=== PATIENT | female | born 1970 | race Caucasian/White ===

== ENCOUNTER 2023-07-11 14:46 | Observation (INO) | payer BC ==
--- NOTE | 2023-07-11 15:52 | PCM.HP ---
History of Present Illness - Chief Complaint Chief Complaint: Cough, shortness of breath Date: 07/11/23 History of Present Illness: is a 53 year old female with a pmhx of MVP, HTN, and diverticulitis, a direct admission from the office of Terri Mcmahon NP, who presents with complaints of mild shortness of breath, productive cough with yellow/green sputum, and chills following a colonoscopy she had yesterday. She reports that during her colonoscopy she was told she had moderate amounts of mucus that had to be cleared while she was under anesthesia and has not felt well since. CT imaging of the C/A/P performed without contrast showing Diffuse patchy left lung consolidating/nonconsolidating airspace disease. Incidental small hiatal hernia as well as diffuse diverticulosis, fatty liver, minimal arteriosclerotic disease, and chronic bony findings. Lab findings are remarkable for leukocytosis with wbc at 11.3 and elevated D-Dimer at 0.86. CTA has been ordered and pending. Denies fever, cp, abdominal pain, WING, dizziness, N/V/D. No recent sick contacts. - Review of Systems Constitutional: Chills, Fatigue Eyes: No Symptoms Ears, Nose, & Throat: No Symptoms Respiratory: Cough, Short Of Breath, Wheezing Cardiac: No Symptoms Abdominal/Gastrointestinal: Abdominal Pain Genitourinary Symptoms: No Symptoms Musculoskeletal: No Symptoms Skin: No Symptoms Neurological: No Symptoms Psychological: No Symptoms Endocrine: No Symptoms Hematologic/Lymphatic: No Symptoms Immunological/Allergic: No Symptoms - Past Medical History Neurological History: No Pertinent History Cardiac History: Hypertension Respiratory History: No Pertinent History Endocrine Medical History: No Pertinent History Musculoskelatal History: Arthritis Comment: MITRAL VALVE PROLAPSE. CHRONIC BACK PAIN. - Physical Exam General Appearance: no apparent distress Neurologic Exam: alert, oriented x 3, cooperative Eye Exam: PERRL/EOMI Neck Exam: normal inspection Respiratory Exam: crackles/rales, wheezing Cardiovascular Exam: regular rate/rhythm, normal heart sounds Extremity Exam: normal inspection Skin Exam: normal color Assessment/Plan (1) Pneumonia Current Visit: Yes Status: Acute Assessment & Plan: CT of chest w/o contrast demonstrates: Diffuse patchy left lung consolidating/nonconsolidating airspace disease, will order CTA -Sputum and Blood cxs obtained -Supplemental oxygen to maintain >92% spo2 -start duonebs, methylprednisone, LR @ 75 ml/hr -RT evaluation -Will Start Ceftriaxone plus azithromycin Continue appropriate baseline home medications CBC, CMP, Mg in am, procal, lactic, respiratory viral panel DVT prophylaxis-lovenox 40 mg SQ daily Code(s): J18.9 - PNEUMONIA, UNSPECIFIED ORGANISM (2) Shortness of breath Current Visit: Yes Status: Acute Assessment & Plan: -see pneumonia, will order CTA to r/o PE Code(s): R06.02 - SHORTNESS OF BREATH (3) Cough productive of purulent sputum Current Visit: Yes Status: Acute Assessment & Plan: -see pneumonia Code(s): R05.8 - OTHER SPECIFIED COUGH (4) Hypertension Current Visit: Yes Status: Acute Assessment & Plan: -Continue home meds Code(s): I10 - ESSENTIAL (PRIMARY) HYPERTENSION (5) Diverticulosis Current Visit: Yes Status: Acute Assessment & Plan: -noted on ct VTE: lovenox PPI: Protonix Next of Kin: Caio Fair spouse [phone] Code(s): K57.90 - DVRTCLOS OF INTEST, PART UNSP, W/O PERF OR ABSCESS W/O BLEED
[2023-07-11] MEDS ORDERED: TYLENOL 325 MG PO PRN (16:21)
[2023-07-11] MEDS ORDERED: DUONEB 0.5-3 MG/3 ml Neb IH PRN ×2 (16:21→17:03)
[2023-07-11] MEDS ORDERED: ROCEPHIN 1 Gm-D5w 50 ml Bag** 1 G/50 ML IVPB IV SCH (16:30)
[2023-07-11] MEDS ORDERED: ZITHROMAX IV*** 0 MG in Sodium Chloride 0.9% 250 ML 250 ML IV SCH (16:30)
[2023-07-11 17:18] LABS: ALBUMIN 4.6 g/dL (3.5-5.0); ALKALINE PHOSPHATASE 82 U/L (38-126); ANION GAP 15.7 MEQ/L (5-15); BLOOD UREA NITROGEN 11 mg/dL (7-17); CHLORIDE 102 mmol/L (98-107); Calcium 9.5 mg/dL (8.4-10.2); Carbon Dioxide 27 mmol/L (22-30); Creatinine 1 0.58 mg/dL (0.52-1.04); EST GLOMERULAR FILTRATION RATE > 60.0 ML/MIN; Glucose 104 mg/dL (74-106); SGOT/AST 36 U/L (14-36); SGPT/ALT 45 U/L (0-35); SODIUM 142 mmol/L (137-145); Total Protein 7.8 g/dL (6.3-8.2)
[2023-07-11 17:23] LABS: Potassium 2.9 mmol/L (3.5-5.1)
[2023-07-11 17:24] LABS: INFLUENZA A NEGATIVE (NEGATIVE); INFLUENZA B NEGATIVE (NEGATIVE); RESPIRATORY SYNCTIAL VIRUS NEGATIVE (NEGATIVE); SARS-CoV-2 Xpert Express NEGATIVE (NEGATIVE)
[2023-07-11] MEDS: Lactated Ringers 1,000 ML IV SCH (17:28)
[2023-07-11] MEDS: ENOXAPARIN SODIUM SQ SCH (17:29)
[2023-07-11] MEDS: PROTONIX 40 MG IV IV SCH (17:30)
[2023-07-11] MEDS: DUONEB 0.5-3 MG/3 ml Neb IH SCH ×2 (17:30→20:58)
[2023-07-11] MEDS ORDERED: Sterile H2O 10 ml IJ ONE (17:30)
[2023-07-11] MEDS: solu-MEDROL IV SCH (17:30)
[2023-07-11] MEDS: PIPERACILLIN/TAZOBACTAM 3.375 GM in Sodium Chloride 100ML MINI-BAG PLUS 100 ML IV SCH (17:33)
[2023-07-11] MEDS ORDERED: Zithromax 500 MG/ 250 ML NaCl Premix 500 MG/250 ML IVPB IV SCH (17:55)
[2023-07-11 18:09] LABS: Appearance Clear (Clear); Bacteria None Seen /HPF (None Seen); Bilirubin Negative (Negative); Blood Trace (Negative); Epithelial Cells None Seen /HPF (None Seen); Glucose, Urine Negative (Negative); Hyaline Casts NONE SEEN /LPF (0-2); Ketones 15 (Negative); Leukocyte Esterase Small (Negative); Nitrite Negative (Negative); Ph 6.5 (4.6-8.0); Protein,Urine Dip Negative (Negative)
[2023-07-11 18:10] LABS: ADD URINE CULTURE? YES (NO)
[2023-07-11] MEDS: Zithromax 500 MG/ 250 ML NaCl Premix 500 MG/250 ML IVPB IV SCH ×2 (18:19→19:32)
[2023-07-11] MEDS: POTASSIUM CHLORIDE 20 mEq IN WATER 100ML 100 ML IV SCH ×2 (18:22→22:18)
[2023-07-12] MEDS: PIPERACILLIN/TAZOBACTAM 3.375 GM in Sodium Chloride 100ML MINI-BAG PLUS 100 ML IV SCH ×3 (00:37→11:25)
[2023-07-12] MEDS: Lactated Ringers 1,000 ML IV SCH (00:40)
--- NOTE | 2023-07-12 05:34 | PCM.NOTE ---
Date and Time: 07/12/23529 Subjective Assessment: is a 53 year old female with a pmhx of MVP, HTN, and diverticulitis, a direct admission from the office of Terri Mcmahon NP, who presents with complaints of mild shortness of breath, productive cough with yellow/green sputum, and chills following a colonoscopy she had 07/10/23. She reports that during her colonoscopy she was told she had moderate amounts of mucus that had to be cleared while she was under anesthesia and has not felt well since. CT imaging of the C/A/P performed without contrast showing Diffuse patchy left lung consolidating/nonconsolidating airspace disease. Incidental small hiatal hernia as well as diffuse diverticulosis, fatty liver, minimal arteriosclerotic disea se, and chronic bony findings. She is currently being treated with zosyn/azithromycin. OBJECTIVE DATA Vital Signs: Vital Signs - 24 hr Temp Pulse Resp BP Pulse Ox 07/12/23 03:40 97.9 F 83 18 115/71 95 07/11/23 23:49 97.5 F 88 18 126/65 97 07/11/23 20:58 85 20 96 07/11/23 20:00 97.8 F 88 20 108/67 96 07/11/23 17:27 82 18 97 07/11/23 15:02 97.7 F 86 20 120/80 97 Pain Assessment - Last Documented Pain Intensity 0 Intake and Output: Intake & Output 07/09/23 07/10/23 07/11/23 07/12/23 11:59 11:59 11:59 11:59 Intake Total 700 Output Total 1000 Balance -300 Weight 92 kg Lab Results: Lab Results-Last 24 Hours 07/11/23 07/11/23 07/11/23 Range/Units 16:40 16:48 16:48 Sodium 142 (137-145) mmol/L Potassium 2.9 L* (3.5-5.1) mmol/L Chloride 102 (98-107) mmol/L Carbon Dioxide 27 (22-30) mmol/L Anion Gap 15.7 H (5-15) MEQ/L BUN 11 (7-17) mg/dL Creatinine 0.58 (0.52-1.04) mg/dL Estimated GFR > 60.0 ML/MIN Glucose 104 (74-106) mg/dL Lactic Acid (0.4-2.0) Calcium 9.5 (8.4-10.2) mg/dL Magnesium 2.0 (1.6-2.3) mg/dL Total Bilirubin 1.60 H (0.2-1.3) mg/dL AST 36 (14-36) U/L ALT 45 H (0-35) U/L Alkaline Phosphatase 82 (38-126) U/L Serum Total Protein 7.8 (6.3-8.2) g/dL Albumin 4.6 (3.5-5.0) g/dL Procalcitonin 2.650 H* (0.030-0.080) ng/mL Urine Color (Yellow) Urine Appearance (Clear) Urine pH (4.6-8.0) Ur Specific [place] (1.005-1.030) Urine Protein (Negative) Urine Glucose (UA) (Negative) mg/dL Urine Ketones (Negative) Urine Blood (Negative) Urine Nitrite (Negative) Urine Bilirubin (Negative) Urine Urobilinogen (0.2) mg/dL Ur Leukocyte Esterase (Negative) U Hyaline Cast (Auto) (0-2) /LPF Urine Microscopic RBC (0-5) /HPF Urine Microscopic WBC (0-5) /HPF Ur Epithelial Cells (None Seen) /HPF Urine Bacteria (None Seen) /HPF Urine Culture Reflexed (NO) Influenza Type A Ag NEGATIVE (NEGATIVE) Influenza Type B Ag NEGATIVE (NEGATIVE) RSV (PCR) NEGATIVE (NEGATIVE) SARS-CoV-2 (PCR) NEGATIVE (NEGATIVE) 07/11/23 07/11/23 07/11/23 Range/Units 16:50 17:57 21:45 Sodium (137-145) mmol/L Potassium 3.3 L (3.5-5.1) mmol/L Chloride (98-107) mmol/L Carbon Dioxide (22-30) mmol/L Anion Gap (5-15) MEQ/L BUN (7-17) mg/dL Creatinine (0.52-1.04) mg/dL Estimated GFR ML/MIN Glucose (74-106) mg/dL Lactic Acid 1.2 (0.4-2.0) Calcium (8.4-10.2) mg/dL Magnesium (1.6-2.3) mg/dL Total Bilirubin (0.2-1.3) mg/dL AST (14-36) U/L ALT (0-35) U/L Alkaline Phosphatase (38-126) U/L Serum Total Protein (6.3-8.2) g/dL Albumin (3.5-5.0) g/dL Procalcitonin (0.030-0.080) ng/mL Urine Color Yellow (Yellow) Urine Appearance Clear (Clear) Urine pH 6.5 (4.6-8.0) Ur Specific [place] 1.010 (1.005-1.030) Urine Protein Negative (Negative) Urine Glucose (UA) Negative (Negative) mg/dL Urine Ketones 15 A (Negative) Urine Blood Trace (Negative) Urine Nitrite Negative (Negative) Urine Bilirubin Negative (Negative) Urine Urobilinogen 2.0 A (0.2) mg/dL Ur Leukocyte Esterase Small A (Negative) U Hyaline Cast (Auto) NONE SEEN (0-2) /LPF Urine Microscopic RBC 3-5 (0-5) /HPF Urine Microscopic WBC 3-5 (0-5) /HPF Ur Epithelial Cells None Seen (None Seen) /HPF Urine Bacteria None Seen (None Seen) /HPF Urine Culture Reflexed YES (NO) Influenza Type A Ag (NEGATIVE) Influenza Type B Ag (NEGATIVE) RSV (PCR) (NEGATIVE) SARS-CoV-2 (PCR) (NEGATIVE) 07/12/23 Range/Units 02:24 Sodium (137-145) mmol/L Potassium 3.3 L (3.5-5.1) mmol/L Chloride (98-107) mmol/L Carbon Dioxide (22-30) mmol/L Anion Gap (5-15) MEQ/L BUN (7-17) mg/dL Creatinine (0.52-1.04) mg/dL Estimated GFR ML/MIN Glucose (74-106) mg/dL Lactic Acid (0.4-2.0) Calcium (8.4-10.2) mg/dL Magnesium (1.6-2.3) mg/dL Total Bilirubin (0.2-1.3) mg/dL AST (14-36) U/L ALT (0-35) U/L Alkaline Phosphatase (38-126) U/L Serum Total Protein (6.3-8.2) g/dL Albumin (3.5-5.0) g/dL Procalcitonin (0.030-0.080) ng/mL Urine Color (Yellow) Urine Appearance (Clear) Urine pH (4.6-8.0) Ur Specific [place] (1.005-1.030) Urine Protein (Negative) Urine Glucose (UA) (Negative) mg/dL Urine Ketones (Negative) Urine Blood (Negative) Urine Nitrite (Negative) Urine Bilirubin (Negative) Urine Urobilinogen (0.2) mg/dL Ur Leukocyte Esterase (Negative) U Hyaline Cast (Auto) (0-2) /LPF Urine Microscopic RBC (0-5) /HPF Urine Microscopic WBC (0-5) /HPF Ur Epithelial Cells (None Seen) /HPF Urine Bacteria (None Seen) /HPF Urine Culture Reflexed (NO) Influenza Type A Ag (NEGATIVE) Influenza Type B Ag (NEGATIVE) RSV (PCR) (NEGATIVE) SARS-CoV-2 (PCR) (NEGATIVE) Radiology Exams: Radiology Procedures Category Date Time Status CHEST WITH CONTRAST [CT] Stat Exams 07/11/23 16:08 Taken Assessment/Plan (1) Pneumonia Current Visit: Yes Status: Acute Assessment & Plan: CT of chest w/o contrast demonstrates: Diffuse patchy left lung consolidating/nonconsolidating airspace disease, will order CTA -Sputum and Blood cxs obtained -Supplemental oxygen to maintain >92% spo2 -start duonebs, methylprednisone, LR @ 75 ml/hr -RT evaluation -Will Start Ceftriaxone plus azithromycin Continue appropriate baseline home medications CBC, CMP, Mg in am, procal, lactic, respiratory viral panel DVT prophylaxis-lovenox 40 mg SQ daily 07/12: -Continue zosyn/azith -CT chest w/ contrast demonstrates Code(s): J18.9 - PNEUMONIA, UNSPECIFIED ORGANISM (2) Shortness of breath Current Visit: Yes Status: Acute Assessment & Plan: -see pneumonia, will order CTA to r/o PE Code(s): R06.02 - SHORTNESS OF BREATH (3) Cough productive of purulent sputum Current Visit: Yes Status: Acute Assessment & Plan: -see pneumonia, will order CTA to r/o PE Code(s): R05.8 - OTHER SPECIFIED COUGH (4) Hypokalemia Current Visit: Yes Status: Acute Assessment & Plan: -labs reviewed, potassium low on admission at 2.9, will hold HCTZ for now, improving since admission, will continue to monitor and replace as appropriate Code(s): E87.6 - HYPOKALEMIA (5) Hypertension Current Visit: Yes Status: Acute Assessment & Plan: -Continue home meds Code(s): I10 - ESSENTIAL (PRIMARY) HYPERTENSION (6) Diverticulosis Current Visit: Yes Status: Acute Assessment & Plan: -noted on ct/recent colonoscopy VTE: lovenox PPI: Protonix Next of Kin: Caio Fair spouse [phone] Code(s): K57.90 - DVRTCLOS OF INTEST, PART UNSP, W/O PERF OR ABSCESS W/O BLEED
[2023-07-12] MEDS: DUONEB 0.5-3 MG/3 ml Neb IH SCH ×2 (06:57→10:35)
[2023-07-12 07:11] LABS: ALBUMIN 3.6 g/dL (3.5-5.0); ALKALINE PHOSPHATASE 69 U/L (38-126); ANION GAP 14.1 MEQ/L (5-15); BLOOD UREA NITROGEN 8 mg/dL (7-17); CHLORIDE 107 mmol/L (98-107); Calcium 8.8 mg/dL (8.4-10.2); Carbon Dioxide 26 mmol/L (22-30); Creatinine 1 0.53 mg/dL (0.52-1.04); EST GLOMERULAR FILTRATION RATE > 60.0 ML/MIN; Glucose 130 mg/dL (74-106); Potassium 3.6 mmol/L (3.5-5.1); SGOT/AST 26 U/L (14-36); SGPT/ALT 34 U/L (0-35); SODIUM 144 mmol/L (137-145); Total Protein 6.5 g/dL (6.3-8.2)
[2023-07-12 07:18] LABS: Hematocrit 37.2 % (35-47); Hemoglobin 12.1 g/dL (12.0-16.0); Mean Cell Volume 87.3 fL (78-100); Mean Corpuscular Hemoglobin 28.4 pg (26-32); Mean Corpuscular Hgb Concent. 32.5 g/dL (32-36); Mean Platelet Volume 10.4 fL (7.5-11.0); Platelet Count 183 x10^3/uL (150-450); Red Blood Count 4.26 x10^6/uL (4.1-5.4); Red Cell Distribution Width 12.7 % (11.5-14.0); White Blood Count 7.8 x10^3/uL (4.0-10.5)
[2023-07-12] MEDS ORDERED: Sterile H2O 10 ml IJ SCH (08:30)
--- NOTE | 2023-07-12 08:43 | XRAY ---
Indication: Elevated d-dimer. Multiple contiguous axial images obtained through the chest using 80 cc Isovue 370 contrast and PE protocol. Comparison: Same day CT chest without contrast exam. Adequate opacification of the pulmonary arteries. However mild respiration artifact limits evaluation for pulmonary embolus. No obvious pulmonary embolus. Heart not enlarged. Aorta is normal in course and caliber. No pathologic mediastinal/hilar lymphadenopathy. Stable small hiatal hernia. Lungs again demonstrates diffuse left lung consolidating/nonconsolidating airspace disease without effusion. Right lung remains clear. Impression: 1. Pulmonary embolus evaluation limited by respiration artifact. No obvious pulmonary embolus. 2. Grossly stable diffuse left lung consolidating/nonconsolidating airspace disease and small hiatal hernia.
[2023-07-12] MEDS: solu-MEDROL IV SCH (08:47)
[2023-07-12] MEDS: PROTONIX 40 MG IV IV SCH (08:47)
[2023-07-12] MEDS: ENOXAPARIN SODIUM SQ SCH (08:47)
--- NOTE | 2023-07-12 09:41 | PCM.DS ---
Discharge Summary Date of Admission: 07/11/23 14:46 Date of Discharge: 07/12/23 Admitting Physician: ROHITH ALMONTE MD Primary Care Provider: ROCK MCMAHON Allergies Allergies No Known Drug Allergies Allergy (Unverified 07/11/23 17:00) Hospital Summary - Hospital Course Hospital Course: is a 53 year old female with a pmhx of MVP, HTN, and diverticulitis, a direct admission from the office of Rock Mcmahon NP, who presents with complaints of mild shortness of breath, productive cough with yellow/green sputum, and chills following a colonoscopy she had 07/10/23. She reports that during her colonoscopy she was told she had moderate amounts of mucus that had to be cleared while she was under anesthesia and has not felt well since. CT imaging of the C/A/P performed without contrast showing Diffuse patchy left lung consolidating/nonconsolidating airspace disease. Incidental small hiatal hernia as well as diffuse diverticulosis, fatty liver, minimal arteriosclerotic disease, and chronic bony findings. Treated with zosyn/ azithromycin as IP. On RA, no hypoxia, will discharge on Doxycycline/azithromycin/ prednisone. Advised close follow up with PCP in 3-5 days. New Diagnosis: Pneumonia New Medications: Doxycycline/azith/prednisone Follow Up: PCP Results pending: bcult Latest Assessment & Plan (1) Pneumonia Current Visit: Yes Status: Acute Assessment & Plan: CT of chest w/o contrast demonstrates: Diffuse patchy left lung consolidating/nonconsolidating airspace disease, will order CTA -Sputum and Blood cxs obtained -Supplemental oxygen to maintain >92% spo2 -start duonebs, methylprednisone, LR @ 75 ml/hr -RT evaluation -Will Start Ceftriaxone plus azithromycin Continue appropriate baseline home medications CBC, CMP, Mg in am, procal, lactic, respiratory viral panel DVT prophylaxis-lovenox 40 mg SQ daily 07/12: -Continue zosyn/azith -CT chest w/ contrast demonstrates Code(s): J18.9 - PNEUMONIA, UNSPECIFIED ORGANISM (2) Shortness of breath Current Visit: Yes Status: Acute Assessment & Plan: -see pneumonia, will order CTA to r/o PE Code(s): R06.02 - SHORTNESS OF BREATH (3) Cough productive of purulent sputum Current Visit: Yes Status: Acute Assessment & Plan: -see pneumonia, will order CTA to r/o PE Code(s): R05.8 - OTHER SPECIFIED COUGH (4) Hypokalemia Current Visit: Yes Status: Acute Assessment & Plan: -labs reviewed, potassium low on admission at 2.9, will hold HCTZ for now, improving since admission, will continue to monitor and replace as appropriate Code(s): E87.6 - HYPOKALEMIA (5) Hypertension Current Visit: Yes Status: Acute Assessment & Plan: -Continue home meds Code(s): I10 - ESSENTIAL (PRIMARY) HYPERTENSION (6) Diverticulosis Current Visit: Yes Status: Acute Assessment & Plan: -noted on ct/recent colonoscopy I spent 45 minutes [id number] with the patient on the day of discharge performing discharge exam, discussing hospital stay and discharge instructions with patient and caregivers, preparation of discharge records, prescriptions & referral forms and addressing any questions/concerns the patient had as documented above. - Vitals & Intake/Output Vital Signs: Vital Signs Temperature 97.7 F 07/12/23 06:50 Pulse Rate 74 07/12/23 06:59 Respiratory Rate 16 07/12/23 06:59 Blood Pressure 125/65 07/12/23 06:50 O2 Sat by Pulse Oximetry 97 07/12/23 06:59 Intake & Output: Intake & Output 07/09/23 07/10/23 07/11/23 07/12/23 11:59 11:59 11:59 11:59 Intake Total 1180 Output Total 1000 Balance 180 Weight 92 kg - Lab Result Diagrams: 07/12/23 06:40 07/12/23 06:40 Lab Results-Last 24 Hrs: Lab Results-Last 24 Hours 07/11/23 07/11/23 07/11/23 Range/Units 16:40 16:48 16:48 WBC (4.0-10.5) x10^3/uL RBC (4.1-5.4) x10^6/uL Hgb (12.0-16.0) g/dL Hct (35-47) % MCV (78-100) fL MCH (26-32) pg MCHC (32-36) g/dL RDW (11.5-14.0) % Plt Count (150-450) x10^3/uL MPV (7.5-11.0) fL Sodium 142 (137-145) mmol/L Potassium 2.9 L* (3.5-5.1) mmol/L Chloride 102 (98-107) mmol/L Carbon Dioxide 27 (22-30) mmol/L Anion Gap 15.7 H (5-15) MEQ/L BUN 11 (7-17) mg/dL Creatinine 0.58 (0.52-1.04) mg/dL Estimated GFR > 60.0 ML/MIN Glucose 104 (74-106) mg/dL Lactic Acid (0.4-2.0) Calcium 9.5 (8.4-10.2) mg/dL Magnesium 2.0 (1.6-2.3) mg/dL Total Bilirubin 1.60 H (0.2-1.3) mg/dL AST 36 (14-36) U/L ALT 45 H (0-35) U/L Alkaline Phosphatase 82 (38-126) U/L Serum Total Protein 7.8 (6.3-8.2) g/dL Albumin 4.6 (3.5-5.0) g/dL Procalcitonin 2.650 H* (0.030-0.080) ng/mL Urine Color (Yellow) Urine Appearance (Clear) Urine pH (4.6-8.0) Ur Specific [place] (1.005-1.030) Urine Protein (Negative) Urine Glucose (UA) (Negative) mg/dL Urine Ketones (Negative) Urine Blood (Negative) Urine Nitrite (Negative) Urine Bilirubin (Negative) Urine Urobilinogen (0.2) mg/dL Ur Leukocyte Esterase (Negative) U Hyaline Cast (Auto) (0-2) /LPF Urine Microscopic RBC (0-5) /HPF Urine Microscopic WBC (0-5) /HPF Ur Epithelial Cells (None Seen) /HPF Urine Bacteria (None Seen) /HPF Urine Culture Reflexed (NO) Influenza Type A Ag NEGATIVE (NEGATIVE) Influenza Type B Ag NEGATIVE (NEGATIVE) RSV (PCR) NEGATIVE (NEGATIVE) SARS-CoV-2 (PCR) NEGATIVE (NEGATIVE) 07/11/23 07/11/23 07/11/23 Range/Units 16:50 17:57 21:45 WBC (4.0-10.5) x10^3/uL RBC (4.1-5.4) x10^6/uL Hgb (12.0-16.0) g/dL Hct (35-47) % MCV (78-100) fL MCH (26-32) pg MCHC (32-36) g/dL RDW (11.5-14.0) % Plt Count (150-450) x10^3/uL MPV (7.5-11.0) fL Sodium (137-145) mmol/L Potassium 3.3 L (3.5-5.1) mmol/L Chloride (98-107) mmol/L Carbon Dioxide (22-30) mmol/L Anion Gap (5-15) MEQ/L BUN (7-17) mg/dL Creatinine (0.52-1.04) mg/dL Estimated GFR ML/MIN Glucose (74-106) mg/dL Lactic Acid 1.2 (0.4-2.0) Calcium (8.4-10.2) mg/dL Magnesium (1.6-2.3) mg/dL Total Bilirubin (0.2-1.3) mg/dL AST (14-36) U/L ALT (0-35) U/L Alkaline Phosphatase (38-126) U/L Serum Total Protein (6.3-8.2) g/dL Albumin (3.5-5.0) g/dL Procalcitonin (0.030-0.080) ng/mL Urine Color Yellow (Yellow) Urine Appearance Clear (Clear) Urine pH 6.5 (4.6-8.0) Ur Specific [place] 1.010 (1.005-1.030) Urine Protein Negative (Negative) Urine Glucose (UA) Negative (Negative) mg/dL Urine Ketones 15 A (Negative) Urine Blood Trace (Negative) Urine Nitrite Negative (Negative) Urine Bilirubin Negative (Negative) Urine Urobilinogen 2.0 A (0.2) mg/dL Ur Leukocyte Esterase Small A (Negative) U Hyaline Cast (Auto) NONE SEEN (0-2) /LPF Urine Microscopic RBC 3-5 (0-5) /HPF Urine Microscopic WBC 3-5 (0-5) /HPF Ur Epithelial Cells None Seen (None Seen) /HPF Urine Bacteria None Seen (None Seen) /HPF Urine Culture Reflexed YES (NO) Influenza Type A Ag (NEGATIVE) Influenza Type B Ag (NEGATIVE) RSV (PCR) (NEGATIVE) SARS-CoV-2 (PCR) (NEGATIVE) 07/12/23 07/12/23 07/12/23 Range/Units 02:24 06:40 06:40 WBC 7.8 (4.0-10.5) x10^3/uL RBC 4.26 (4.1-5.4) x10^6/uL Hgb 12.1 (12.0-16.0) g/dL Hct 37.2 (35-47) % MCV 87.3 (78-100) fL MCH 28.4 (26-32) pg MCHC 32.5 (32-36) g/dL RDW 12.7 (11.5-14.0) % Plt Count 183 (150-450) x10^3/uL MPV 10.4 (7.5-11.0) fL Sodium 144 (137-145) mmol/L Potassium 3.3 L 3.6 (3.5-5.1) mmol/L Chloride 107 (98-107) mmol/L Carbon Dioxide 26 (22-30) mmol/L Anion Gap 14.1 (5-15) MEQ/L BUN 8 (7-17) mg/dL Creatinine 0.53 (0.52-1.04) mg/dL Estimated GFR > 60.0 ML/MIN Glucose 130 H (74-106) mg/dL Lactic Acid (0.4-2.0) Calcium 8.8 (8.4-10.2) mg/dL Magnesium (1.6-2.3) mg/dL Total Bilirubin 0.80 (0.2-1.3) mg/dL AST 26 (14-36) U/L ALT 34 (0-35) U/L Alkaline Phosphatase 69 (38-126) U/L Serum Total Protein 6.5 (6.3-8.2) g/dL Albumin 3.6 (3.5-5.0) g/dL Procalcitonin (0.030-0.080) ng/mL Urine Color (Yellow) Urine Appearance (Clear) Urine pH (4.6-8.0) Ur Specific [place] (1.005-1.030) Urine Protein (Negative) Urine Glucose (UA) (Negative) mg/dL Urine Ketones (Negative) Urine Blood (Negative) Urine Nitrite (Negative) Urine Bilirubin (Negative) Urine Urobilinogen (0.2) mg/dL Ur Leukocyte Esterase (Negative) U Hyaline Cast (Auto) (0-2) /LPF Urine Microscopic RBC (0-5) /HPF Urine Microscopic WBC (0-5) /HPF Ur Epithelial Cells (None Seen) /HPF Urine Bacteria (None Seen) /HPF Urine Culture Reflexed (NO) Influenza Type A Ag (NEGATIVE) Influenza Type B Ag (NEGATIVE) RSV (PCR) (NEGATIVE) SARS-CoV-2 (PCR) (NEGATIVE) 07/12/23 Range/Units 06:40 WBC (4.0-10.5) x10^3/uL RBC (4.1-5.4) x10^6/uL Hgb (12.0-16.0) g/dL Hct (35-47) % MCV (78-100) fL MCH (26-32) pg MCHC (32-36) g/dL RDW (11.5-14.0) % Plt Count (150-450) x10^3/uL MPV (7.5-11.0) fL Sodium (137-145) mmol/L Potassium (3.5-5.1) mmol/L Chloride (98-107) mmol/L Carbon Dioxide (22-30) mmol/L Anion Gap (5-15) MEQ/L BUN (7-17) mg/dL Creatinine (0.52-1.04) mg/dL Estimated GFR ML/MIN Glucose (74-106) mg/dL Lactic Acid (0.4-2.0) Calcium (8.4-10.2) mg/dL Magnesium 1.9 (1.6-2.3) mg/dL Total Bilirubin (0.2-1.3) mg/dL AST (14-36) U/L ALT (0-35) U/L Alkaline Phosphatase (38-126) U/L Serum Total Protein (6.3-8.2) g/dL Albumin (3.5-5.0) g/dL Procalcitonin (0.030-0.080) ng/mL Urine Color (Yellow) Urine Appearance (Clear) Urine pH (4.6-8.0) Ur Specific [place] (1.005-1.030) Urine Protein (Negative) Urine Glucose (UA) (Negative) mg/dL Urine Ketones (Negative) Urine Blood (Negative) Urine Nitrite (Negative) Urine Bilirubin (Negative) Urine Urobilinogen (0.2) mg/dL Ur Leukocyte Esterase (Negative) U Hyaline Cast (Auto) (0-2) /LPF Urine Microscopic RBC (0-5) /HPF Urine Microscopic WBC (0-5) /HPF Ur Epithelial Cells (None Seen) /HPF Urine Bacteria (None Seen) /HPF Urine Culture Reflexed (NO) Influenza Type A Ag (NEGATIVE) Influenza Type B Ag (NEGATIVE) RSV (PCR) (NEGATIVE) SARS-CoV-2 (PCR) (NEGATIVE) Micro Results-Entire Visit: Microbiology 07/11/23 17:57 Urine Culture - Preliminary Clean Catch Midstream NO GROWTH TO DATE - Radiology Exams Ordered Rad Exams-Entire Visit: Radiology Procedures Category Date Time Status CHEST WITH CONTRAST [CT] Stat Exams 07/11/23 16:08 Completed - Procedures and Test Procedures and Tests throughout Hospitalization: Therapy Orders & Screens 07/11/23 16:21 EKG STAT Comment: Diagnosis: Cough, shortness of breath Respiratory Therapy Consult ONCE Comment: Reason For Exam: Diagnosis: Cough, shortness of breath 07/11/23 17:26 Respiratory Therapy Assessment DAILY Comment: Diagnosis: Cough, shortness of breath Discharge Exam General Appearance: no apparent distress Neurologic Exam: alert, oriented x 3, cooperative Eye Exam: PERRL Ears, Nose, Throat Exam: normal ENT inspection Neck Exam: normal inspection Respiratory Exam: crackles/rales Cardiovascular Exam: regular rate/rhythm, normal heart sounds Gastrointestinal/Abdomen Exam: soft, normal bowel sounds Pelvic Exam: deferred Rectal Exam: deferred Back Exam: normal inspection Extremity Exam: normal inspection Final Diagnosis/Problem List - Final Discharge Diagnosis/Problem (1) Pneumonia Current Visit: Yes Status: Acute Code(s): J18.9 - PNEUMONIA, UNSPECIFIED ORGANISM (2) Shortness of breath Current Visit: Yes Status: Acute Code(s): R06.02 - SHORTNESS OF BREATH (3) Cough productive of purulent sputum Current Visit: Yes Status: Acute Code(s): R05.8 - OTHER SPECIFIED COUGH (4) Hypokalemia Current Visit: Yes Status: Resolved Code(s): E87.6 - HYPOKALEMIA (5) Hypertension Current Visit: Yes Status: Chronic Code(s): I10 - ESSENTIAL (PRIMARY) HYP ERTENSION (6) Diverticulosis Current Visit: Yes Status: Chronic Code(s): K57.90 - DVRTCLOS OF JANIA FARAH RT UNSP, W/O PERF OR ABSCESS W/O BLEED - Discharge Disposition: Home, Self-Care Condition: Stable Prescriptions: New Azithromycin [Azithromycin 250 mg Pack] 250 mg PO UD #6 tablet Methylprednisolone Packet [Medrol Dosepack] 4 mg PO UD #30 packet Doxycycline Hyclate 100 mg [Vibramycin 100 MG] 100 mg PO BID 10 Days #20 tab Continue Loratadine 10 mg [Claritin 10 mg] 10 mg PO DAILY hydroCHLOROthiazide [Hydrochlorothiazide] 25 mg PO DAILY Potassium Chloride 10 meq PO DAILY Metoprolol Tartrate 50 mg [Lopressor 50 MG] 50 mg PO DAILY Meloxicam 15 mg [Meloxicam 15 MG] 15 mg PO DAILY Follow up with: ROCK MCMAHON NP [Primary Care Provider] -
[2023-07-12] MEDS ORDERED: NON-FORMULARY ITEM (Meloxicam 15 Mg [Meloxicam 15 Mg] 15 MG Tablet) PO SCH (10:00)
[2023-07-12] MEDS ORDERED: Lopressor 50 MG PO SCH (10:00)
[2023-07-12] MEDS ORDERED: CLARITIN 10 MG PO SCH (10:00)
[2023-07-12] MEDS ORDERED: MELOXICAM PO SCH (10:00)
[2023-07-12 11:24] VITALS: BP 120/65; PULSE 76; RESP 16; TEMP 97.8; O2SAT 95
[2023-07-12] MEDS ORDERED: Zithromax 500 MG/ 250 ML NaCl Premix 500 MG/250 ML IVPB IV SCH (22:00)
== END 2023-07-12 12:55 | disposition home or self-care (01) ==
LOC: MED SURG 14:46
PROVIDERS: ADMIT Internal Medicine; ATTEND Internal Medicine
DX: J18.9 Pneumonia, unspecified organism (principal); R06.02 Shortness of breath; R05.8 Other specified cough; E87.6 Hypokalemia; I10 Essential (primary) hypertension; K57.30 Diverticulosis of large intestine without perforation or abscess without bleeding; I34.1 Nonrheumatic mitral (valve) prolapse; K44.9 Diaphragmatic hernia without obstruction or gangrene; Z79.899 Other long term (current) drug therapy; Z20.828 Contact with and (suspected) exposure to other viral communicable diseases
CPT/HCPCS: 0241U; 36415; 71260; 80053; 81001; 83605; 83735; 84132; 84145; 85027; 87040; 87086; 93005; 94640; 94760; Q3014; G0378; G0379; J0456; J1650; J2920; J3480; A9270-GY

== ENCOUNTER 2023-10-11 13:43 | Day surgery (SDC) | payer BC ==
[2023-10-11] MEDS ORDERED: BUPIVACAINE 0.5% VIAL IJ ONE (13:44)
[2023-10-11] MEDS ORDERED: Depo-Medrol 40 MG/ML IM ONE (13:44)
[2023-10-11 14:09] LABS: HCG URINE TEST NEGATIVE (NEGATIVE)
[2023-10-11] MEDS ORDERED: DIPRIVAN 200 MG/20 ML IV ONE (15:16)
[2023-10-11] MEDS ORDERED: Lactated Ringers 1,000 ML IV ONE (16:41)
--- NOTE | 2023-10-11 16:51 | XRAY ---
Indication: Bilateral SI joint injection. Intraoperative fluoroscopy provided for 16 seconds. 4 digital spot image submitted for interpretation demonstrates posterior needle tip projecting over the left and right SI joint. Correlate with intraoperative findings/report.
--- NOTE | 2023-10-11 16:57 | XRAY ---
16 seconds of fluoroscopy was used in surgery for a bilateral sacroiliac joint injection.
== END 2023-10-11 15:47 | disposition home or self-care (01) ==
LOC: SDC-PAIN 13:43
PROVIDERS: ATTEND Psychiatry & Neurology Pain Medicine
DX: M46.1 Sacroiliitis, not elsewhere classified (principal)
CPT/HCPCS: 27096; 72202; 77002; 81025; J1030; J2704; G0260

== ENCOUNTER 2024-04-17 10:36 | Day surgery (SDC) | payer BC ==
[2024-04-17] MEDS ORDERED: BUPIVACAINE 0.5% VIAL IJ ONE (10:37)
[2024-04-17] MEDS ORDERED: Depo-Medrol 40 MG/ML IM ONE (10:37)
[2024-04-17 11:44] LABS: HCG URINE TEST NEGATIVE (NEGATIVE)
[2024-04-17] MEDS ORDERED: Lactated Ringers 1,000 ML IV ONE (12:11)
[2024-04-17] MEDS ORDERED: DIPRIVAN 200 MG/20 ML IV ONE (12:15)
--- NOTE | 2024-04-17 15:30 | XRAY ---
Indication: Bilateral SI joint injection. Intraoperative fluoroscopy provided for 23 seconds. 2 digital spot image submitted for interpretation demonstrates posterior needle tips projecting over the expected left and right SI joints. Small amount of contrast injected for needle tip placement. Correlate with intraoperative findings/report.
--- NOTE | 2024-04-17 16:50 | XRAY ---
23 seconds of fluoroscopy was used in surgery for a bilateral sacroiliac joint injection.
== END 2024-04-17 12:53 | disposition home or self-care (01) ==
LOC: SDC-PAIN 10:36
PROVIDERS: ATTEND Psychiatry & Neurology Pain Medicine
DX: M46.1 Sacroiliitis, not elsewhere classified (principal)
CPT/HCPCS: 27096; 72202; 77002; 81025; J2704; Q9966; G0260

== ENCOUNTER 2025-06-28 20:26 | Emergency (ER) | payer BC ==
[2025-06-28 21:05] VITALS: TEMP 99.9
--- NOTE | 2025-06-28 23:20 | ERPHSYRPT ---
- History of Present Illness Time Seen by Provider: 06/28/25 23:19 Source: patient, family Exam Limitations: no limitations Patient Subjective Stated Complaint: left achilles pain, felt a pop Triage Nursing Assessment: Pt brought in by son in a wheelchair. Pt c/o left achilles pain. Pt had a walking boot on upon arrival from [facility]. Pt was seen yesterday at [facility] walk in clinic for achilles pain and was given a couple prescriptions and told to wear the walking boot. Pt took the walking boot off this evening and was walking around and stepped on something and felt a pop in the achilles area and the pain has increased. She put the boot back on and came to the ER. The left foot and achilles area appears swollen with faint purple bruise noted to achilles area. Pt c/o pain of an 8 at this time. Physician History: Pt had onset of left achilles pain with pop yesterday after seeing ortho and having steroid injection and feels more pain now. tolerated NsAIDS well in past. Discussed with pt and available family risks and benefits of testing/Tx including CBC, sed rate CT leg , toradol pain med, Antibiotic and they wish to proceed so these are ordered. Results discussed with pt and available family Method of Injury: other (stepped down no fall) Occurred: this afternoon Quality: constant, sharpness, throbbing Severity of Pain-Max: moderate Severity of Pain-Current: moderate Lower Extremities Pain: other: left (achilles) Modifying Factors: Improves With: movement Associated Symptoms: popping sensation Allergies/Adverse Reactions: No Known Drug Allergies Allergy (Unverified 06/28/25 21:05) Home Medications: Meloxicam 15 mg [Meloxicam 15 MG] 15 mg PO DAILY 07/11/23 [History] Metoprolol Tartrate 50 mg [Lopressor 50 MG] 50 mg PO DAILY 07/11/23 [History] Hydrocodone/Acetaminophen [Hydrocodone-Acetamin 7.5-325] 1 each PO Q6HPRN PRN 08/19/24 [History] Omeprazole 40 mg PO DAILY 08/19/24 [History] Semaglutide [Ozempic] 1 mg SQ WEEKLY 06/28/25 [History] methylPREDNISolone [Methylprednisolone] 1 tab UD 06/28/25 [History] Hx Tetanus, Diphtheria Vaccination/Date Given: Yes Hx Influenza Vaccination/Date Given: Yes Hx Pneumococcal Vaccination/Date Given: No Travel Risk - International Travel Have you traveled outside of the country in past 3 weeks: No - Emerging Infectious Disease Are you exhibiting symptoms associated with any current EIDs: Yes - Review of Systems Constitutional: No Fever, No Chills Eyes: No Symptoms Ears, Nose, & Throat: No Symptoms Respiratory: No Cough, No Dyspnea Cardiac: No Chest Pain, No Edema, No Syncope Abdominal/Gastrointestinal: No Abdominal Pain, No Nausea, No Vomiting, No Diarrhea Genitourinary Symptoms: No Dysuria Musculoskeletal: Injury, Joint Pain, No Back Pain, No Neck Pain Skin: No Rash Neurological: No Dizziness, No Focal Weakness, No Sensory Changes Psychological: No Symptoms Endocrine: No Symptoms Hematologic/Lymphatic: No Symptoms Immunological/Allergic: No Symptoms All Other Systems: Reviewed and Negative - Past Medical History Pertinent Past Medical History: Yes Neurological History: No Pertinent History ENT History: No Pertinent History Cardiac History: Hypertension Respiratory History: No Pertinent History Endocrine Medical History: No Pertinent History Musculoskeletal History: Arthritis GI Medical History: Diverticulosis, GERD History: No Pertinent History Psycho-Social History: No Pertinent History Female Reproductive Disorders: No Pertinent History Other Medical History: MITRAL VALVE PROLAPSE. CHRONIC BACK PAIN. Achilles tendonitis - Past Surgical History Past Surgical History: Yes Neuro Surgical History: No Pertinent History Cardiac: No Pertinent History Respiratory: No Pertinent History Gastrointestinal: Hernia Repair Genitourinary: No Pertinent History Musculoskeletal: No Pertinent History Female Surgical History: Dilation & Curettage Other Surgical History: colonoscopy 07/10/23 - Female History Hx Now: No - Social History Smoking Status: Never smoker Exposure to second hand smoke: No Drug Use: none - Social Determinants of Health Will the patient participate in the screening: Yes Do you worry about a steady place to live?: No Do you have any problems with any of the following?: No known problems In the past 12 months,have you had to go without utilities?: No Transportation Issues: No Has anyone in your support network made you feel unsafe?: No Have you or anyone in your house had to go w/o enough food: No - Nursing Vital Signs Nursing Vital Signs: Initial Vital Signs Blood Pressure 158/108 06/28/25 21:03 O2 Sat by Pulse Oximetry 100 06/28/25 21:03 Pain Scale Pain Intensity 4 - Physical Exam General Appearance: no apparent distress, alert Eyes, Ears, Nose, Throat Exam: moist mucous membranes Neck Exam: non-tender, supple Cardiovascular/Respiratory Exam: chest non-tender, normal breath sounds, regular rate/rhythm, no respiratory distress Gastrointestinal/Abdominal Exam: non-tender, guarding Back Exam: normal inspection, No vertebral tenderness Hips Exam: bilateral: non-tender, normal inspection, normal range of motion, no evidence of injury Legs Exam: bilateral leg: non-tender, normal inspection, normal range of motion, no evidence of injury Knees Exam: bilateral knee: non-tender, normal inspection, normal range of motion, no evidence of injury Ankle Exam: right ankle: non-tender, normal inspection, normal range of motion, no evidence of injury, left ankle: soft tissue tenderness, swelling, other (achilles tender) Foot Exam: bilateral foot: non-tender, normal inspection, normal range of motion, no evidence of injury DTR - Lower Extremities Exam: knee (R): 2+, knee (L): 2+, ankle (R): 2+, ankle (L): 2+ Neuro/Tendon Exam: normal sensation, normal motor functions, normal tendon functions Mental Status Exam: alert, oriented x 3, cooperative Skin Exam: normal color, warm, dry SpO2 Interpretation: normal SpO2: 99 O2 Delivery: Room Air - Course Nursing assessment & vital signs reviewed: Yes - CT Exams Left Lower Extremity CT Interpretation: Tele-radiologist Report, Other (partial achilles tear - no collections or tenosynovitis described. ) Ordered Tests: Active Orders 24 hr Category Date Time Status LOWER EXTREMITY WO CONTRAST [CT] Stat Exams 06/28/25 23:20 Completed CBC W DIFF Stat Lab 06/28/25 23:33 Completed SED RATE [Erythrocyte Sedimentation Rate] Stat Lab 06/28/25 23:33 Completed Medication Summary Discontinued Medications Generic Name Dose Route Start Last Admin Trade Name Freq PRN Reason Stop Dose Admin Ketorolac Tromethamine 60 mg 06/28/25 23:21 06/28/25 23:26 Ketorolac Tromethamine 30 Mg/Ml Inj IM 06/28/25 23:22 60 mg STAT ONE Administration Ketorolac Tromethamine Confirm 06/28/25 23:24 Ketorolac Tromethamine 30 Mg/Ml Inj Administered 06/28/25 23:25 Dose 60 mg .ROUTE .[facility] Lab/Rad Data: Laboratory Result Diagrams 06/28/25 23:33 Laboratory Results 06/28/25 06/28/25 Range/Units 23:33 23:33 WBC 12.4 H (3.98-10.04) x10^3/uL RBC 4.84 (3.93-5.22) x10^6/uL Hgb 13.4 (11.2-15.7) g/dL Hct 42.0 (34.1-44.9) % MCV 86.8 (79.4-94.8) fL MCH 27.7 (25.6-32.2) pg MCHC 31.9 L (32.2-35.5) g/dL RDW 12.5 (11.7-14.4) % Plt Count 275 (182-369) x10^3/uL MPV 9.9 (9.4-12.3) fL Gran % 67.4 (34.0-71.1) % Immature Gran % (Auto) 0.4 (0.001-0.429) % Nucleat RBC Rel Count 0.0 (0.00-0.2) % Eos # (Auto) 0.03 L (0.04-0.36) x10^3/uL Immature Gran # (Auto) 0.05 H (0.001-0.031) x10^3u/L Absolute Lymphs (auto) 2.78 (1.18-3.74) x10^3/uL Absolute Monos (auto) 1.10 H (0.24-0.86) x10^3/uL Absolute Nucleated RBC 0.00 (0.00-0.012) x10^3u/L Lymphocytes % 22.5 (19.3-51.7) % Monocytes % 8.9 (4.7-12.5) % Eosinophils % 0.2 L (0.7-5.8) % Basophils % 0.6 (0.1-1.2) % Absolute Granulocytes 8.35 H (1.56-6.13) x10^3/uL Basophils # 0.07 (0.01-0.08) x10^3/uL ESR 7 (0-20) mm/hr - Progress Progress: improved, re-examined Progress Note: 06/29/25 01:10 pain has improved per pt. Counseled pt/family regarding: lab results, diagnosis, need for follow-up, rad results Medical Desision Making - Discussion of managment Reviewed:: Test results, Need for additional workup Agreed on:: Treatment plan, need for follow-up - Diagnostic Testing Diagnostic test were ordered, analyzed, and reviewed by me: Yes Radiological Interpretation: Teleradiologist Report - Risk of complications The pt has a mod risk of morbidity or mortality based on: Need for prescription drug management - Departure Departure Disposition: Home Clinical Impression: Injury of left Achilles tendon Condition: Good Critical Care Time: No Referrals: ROCK NEWELL NP [Primary Care Provider, UNKNOWN] - Follow up/PCP as directed Additional Instructions: followup with your Ortho- they may need further studies like MRI . will will send the CT to [facility] for you. Keep elevated and use crutches. Return meantime if any concerns.
[2025-06-28] MEDS ORDERED: TORAdol 30 mg Injection ONE (23:24)
[2025-06-28] MEDS: TORAdol 30 mg Injection IM ONE (23:26)
[2025-06-28 23:35] LABS: BASOPHIL % 0.6 % (0.1-1.2); Basophil (Absolute #) 0.07 x10^3/uL (0.01-0.08); Eosinophil (Absolute #) 0.03 x10^3/uL (0.04-0.36); Hematocrit 42.0 % (34.1-44.9); Hemoglobin 13.4 g/dL (11.2-15.7); IMMATURE GRAN # 0.05 x10^3u/L (0.001-0.031); IMMATURE GRAN % 0.4 % (0.001-0.429); Lymphocyte (Absolute #) 2.78 x10^3/uL (1.18-3.74); Mean Corpuscular Hemoglobin 27.7 pg (25.6-32.2); Mean Corpuscular Hgb Concent. 31.9 g/dL (32.2-35.5); Monocyte (Absolute #) 1.10 x10^3/uL (0.24-0.86); NUCLEATED RBC # 0.00 x10^3u/L (0.00-0.012); NUCLEATED RBC % 0.0 % (0.00-0.2); Platelet Count 275 x10^3/uL (182-369); Red Blood Count 4.84 x10^6/uL (3.93-5.22); White Blood Count 12.4 x10^3/uL (3.98-10.04)
[2025-06-29 01:11] VITALS: O2SAT 99
--- NOTE | 2025-06-29 01:39 | XRAY ---
CLINICAL HISTORY: pain left achilles COMPARISON: 08/15/2024 15:30:00 [employer] TECHNIQUE: Contiguous axial CT images of the left lower extremity/ankle joint were obtained without intravenous contrast. Sagittal and coronal multiplanar reformats were acquired. One of the following dose reduction techniques was utilized for this exam: Automated exposure control, adjustment of the mA and/or kV according to patient size, or use of iterative reconstruction. FINDINGS: Bones: A small bony plantar calcaneal spur is noted. An os naviculare is present. There is noted fragmentation of the bony ossicles related to the first metatarsal head, likely normal rather than fractured. There is normal alignment of the tibia, fibula, talus, calcaneus, navicular, cuboid, cuneiforms, and metatarsals. There are no fractures or dislocations. There are no lytic or sclerotic lesions. There is no evidence of bone marrow edema. Joints: There is a normal appearance of the tibiotalar, subtalar, and other ankle joints. There are no joint effusions or significant degenerative changes. Articular surfaces are normal without erosions or osteophyte formation. Soft Tissues: The soft tissues have a normal appearance. There are no signs of swelling, masses, or abnormal fluid collections. There is no evidence of tendinopathy or ligamentous injury. Muscles, Ligaments, and Tendons: There is increased thickness and swelling of the examined parts of the Achilles tendon, which shows wavy outlines with evidence of interrupted continuity about 3 cm above its insertion, as demonstrated by an oblique line, with some continuity of fibers, and with a small gap measuring 9 mm. It demonstrates multiple small calcific foci, suggesting prior calcific tendinopathy. IMPRESSION: There is increased thickness and swelling of the examined parts of the Achilles tendon, which shows wavy outlines with evidence of interrupted continuity about 3 cm above its insertion, as demonstrated by an oblique line, with some continuity of fibers, and with a small gap measuring 9 mm. It demonstrates multiple small calcific foci, suggesting prior calcific tendinopathy. A partial tear is present. Further MRI evaluation is recommended if clinically indicated. A small bony plantar calcaneal spur is noted. An os naviculare is present. There is noted fragmentation of the bony ossicles related to the first metatarsal head, likely normal rather than fractured. Electronically Signed by: Asher Diaz MD. (06/29/2025 01:37:38 EDT)
[2025-06-29 02:12] VITALS: BP 144/98; PULSE 71; RESP 16
== END 2025-06-29 02:10 | disposition home or self-care (01) ==
LOC: ED 20:26
DX: S86.002A Unspecified injury of left Achilles tendon, initial encounter (principal); I10 Essential (primary) hypertension; Z79.52 Long term (current) use of systemic steroids; Z79.85 Long-term (current) use of injectable non-insulin antidiabetic drugs; Z79.899 Other long term (current) drug therapy